=== PATIENT | male | born 1990 | race Caucasian/White ===

== ENCOUNTER 2021-07-06 21:54 | Emergency (ER) | payer MEDICAID, SELFPAY ==
[2021-07-06] VITALS (9 sets, daily range): BP systolic 139–146; BP diastolic 68–85; PULSE 100–134; RESP 20–38; TEMP 36.1; O2SAT 96–99; BMI 29.8
[2021-07-06] MEDS: LORazepam 2 MG/ML VIAL IM (22:01)
[2021-07-06] MEDS: Haloperidol Lactate 5 MG/ML VIAL IM (22:09)
--- NOTE | 2021-07-06 22:18 | ED.OVERDOSE ---
HPI - Overdose General Chief Complaint: Overdose Stated Complaint: od Time Seen by Provider: 07/06/21 22:01 Source: EMS Mode of arrival: EMS History of Present Illness HPI Narrative: Patient was found intoxicated unresponsive in his car EMS had to break the windshield to extract him patient was not breathing, was given 10 mg of Narcan total before he arrived after Narcan became very combative yelling uncooperative on arrival patient was very combative agitated had to put an 4 point restraint was given 2 mg of Ativan IM and 5 mg of Haldol IM Related Data Allergies Allergy/AdvReac Type Severity Reaction Status Date / Time No Known Allergies Allergy Unverified 06/27/20 17:02 Review of Systems Review of Systems: Yes Unobtainable due to mental status PMFSH Social History Social History Advance Directives: No Advance Directives Information Provided: Yes Physical Exam Vital Signs: Vital Signs: Last Vital Signs Temp 97 F 07/06/21 22:27 Pulse 75 07/07/21 04:54 Resp 16 07/07/21 04:54 BP 112/59 L 07/07/21 02:36 Pulse Ox 97 07/07/21 02:11 Body Mass Index 29.8 Appearance: Alert. And awake very agitated fighting with an staff Eyes: PERRLA, No Nystagmus ENT: Pharynx normal. Oral Mucosa moist atraumatic normocephalic Neck: Normal inspection. Neck supple. CVS: Normal heart rate and rhythm. Pulses normal. Respiratory: No respiratory distress. Equal air entry bilateral, no wheezing/rales/rhonchi Abdomen: Soft and nontender. Skin: Skin warm and dry. Normal skin color. Normal skin turgor. Extremities: No lower extremity edema. No calf tenderness Neuro: Oriented X 2 MDM - Overdose MDM Narrative Medical decision making narrative: Patient's substance abuse use opiates fentanyl and cocaine. At this time patient is alert oriented x3 relaxed not agitated will discharge him advised to follow detox Lab Data Attestation: I reviewed the patient's lab results. Labs: Lab Results 07/07/21 Range/Units 03:32 Urine Opiates Screen POSITIVE H (Not Detect) Urine Fentanyl Screen POSITIVE H (Not Detect) Ur Barbiturates Screen Not Detected (Not Detect) Ur Phencyclidine Scrn Not Detected (Not Detect) Ur Amphetamines Screen Not Detected (Not Detect) U Benzodiazepines Scrn Not Detected (Not Detect) Urine Cocaine Screen POSITIVE H (Not Detect) U Marijuana (THC) Screen Not Detected (Not Detect) Discharge Plan Discharge Clinical Impression: Drug overdose Qualifiers: Encounter type: initial encounter Injury intent: accidental or unintentional Qualified Code(s): T50.901A - Poisoning by unspecified drugs, medicaments and biological substances, accidental (unintentional), initial encounter Patient Disposition: Home, Self-Care Instructions: Adult Overdose (ED) Additional Instructions: Stop using heroin cocaine and follow up with detox
--- NOTE | 2021-07-06 22:20 | PC.NURSE ---
pt remains agitated and physically combative, spitting at staff, unable to obtain BP or temp at this time
--- NOTE | 2021-07-06 22:31 | PC.NURSE ---
still unable to obtain BP, pt repeatedly stating that his arms hurt, educated in [employer] that thrashing in bed is likely exacerbating pain, not able to verbalize understanding, not able to be redirected
--- NOTE | 2021-07-06 23:52 | PC.NURSE ---
Restraints removed, pt sleeping, waking up intermittently. Asked what happened [employer], denies all substance use, unable to describe how opioids may have entered system
[2021-07-07 01:16] VITALS: BP 92/43
[2021-07-07 02:11] VITALS: PULSE 77; RESP 26; O2SAT 97
[2021-07-07 02:36] VITALS: BP 112/59; PULSE 76; RESP 16
[2021-07-07 03:52] LABS: Amphetamine Screen Urine Not Detected (Not Detect); Barbiturates, Urine Not Detected (Not Detect); Benzodiazepines Screen Urine Not Detected (Not Detect); Cannabinoid Screen Urine Not Detected (Not Detect); Cocaine Screen Urine POSITIVE (Not Detect); Fentanyl, urine POSITIVE (Not Detect); Opiate Screen Urine POSITIVE (Not Detect); Phencyclidine Screen Urine Not Detected (Not Detect)
[2021-07-07 04:54] VITALS: PULSE 75; RESP 16
== END 2021-07-07 06:24 | disposition home or self-care (01) ==
PROVIDERS: Emergency Provider Internal Medicine
DX: T40.1X1A Poisoning by heroin, accidental (unintentional), initial encounter (principal); Y92.810 Car as the place of occurrence of the external cause; F11.20 Opioid dependence, uncomplicated; Z71.51 Drug abuse counseling and surveillance of drug abuser; Z79.899 Other long term (current) drug therapy
CPT/HCPCS: 80307; 96372; 99285; J2060

== ENCOUNTER 2021-07-13 02:51 | Emergency (ER) | payer MEDICAID, SELFPAY ==
[2021-07-13 03:12] LABS: Glucose, Whole Blood 256 mg/dL (60-115)
--- NOTE | 2021-07-13 03:14 | ED.CPR ---
HPI - CPR General Chief Complaint: Cardiac Arrest/CPR Stated Complaint: Unresponsive Time Seen by Provider: 07/13/21 03:12 Source: EMS Mode of arrival: EMS History of Present Illness HPI narrative: 30-year-old male brought in by EMS with CPR in progress. EMS reports that patient was found to be unresponsive in his car by a bystander and evaluation by police and fire department noted that at that time patient had a pulse but was making gurgling noises and Narcan was administered but then patient was noted to have loss of pulse and CPR commenced. EMS reports that they placed a Rolando tube and administered 6 rounds of epi but never appreciated more than PEA on collar starcher. Related Data Allergies Allergy/AdvReac Type Severity Reaction Status Date / Time No Known Allergies Allergy Unverified 06/27/20 17:02 Review of Systems Review of Systems: Yes Unobtainable due to mental condition PMFSH Past Medical History Source: nursing notes reviewed Social History Social History Advance Directives: No Physical Exam Vital Signs: Vital Signs: CPR in progress with excellent capnography, PE a on the monitor, ED bedside ultrasound demonstrates no cardiac movement, central cyanosis noted. Course Course Course Narrative: Please refer to the cardiac arrest documentation, in brief time of called at 3:04 a.m. Patient's sister was present at bedside. The mother was brought in and informed the of her son. There is no evidence of trauma. Reevaluation(s) Reevaluation #1: Contacted medical laboratory manager's office, they are accepting the case, the case number is: [id number]. ME is Justine Romo. Time: 03:15 MDM - Cardiac Arrest/CPR Lab Data Labs: Lab Results 07/13/21 Range/Units 02:58 POC Glucose 256 H (60-115) mg/dL Discharge Plan Discharge Clinical Impression: Cardiac arrest, Polysubstance (excluding opioids) dependence, daily use Patient Disposition:
--- NOTE | 2021-07-13 03:27 | PC.NURSE ---
[facility] notified of asystole per protocol
--- NOTE | 2021-07-13 04:17 | PC.NURSE ---
CASE # [id number] PARAG @ [facility]
--- NOTE | 2021-07-13 04:52 | PC.NURSE ---
[facility] updated that family has exited, provided w/ family contact info per request. [facility]or services states they will follow [place] [facility] [place] RN Lilia and foam chargerMARLO arreaga
--- NOTE | 2021-07-13 04:58 | PC.NURSE ---
OUT PATIENT THERAPIST HERE FOR PICTURES, PATIENT WAS ACCEPTED BY THE ME, ALL FAMILY HAS LEFT AWAITING DETECTIVES TO BE DONE BEFORE TRANSPORT TO THE [facility] [place].
== END 2021-07-13 05:36 | disposition expired ==
PROVIDERS: Emergency Provider Student in an Organized Health Care Education/Training Program
DX: I46.9 Cardiac arrest, cause unspecified (principal); F19.10 Other psychoactive substance abuse, uncomplicated
CPT/HCPCS: 82947; 96374; 96375; 99282; 99285; J0171